=== PATIENT | female | born 1995 | race Caucasian/White ===

== ENCOUNTER 2016-07-25 18:51 | Outpatient (CLI) | payer OTHER ==
[~2016-07-25] VITALS: Ht 162.6 cm; Wt 78.2 kg
[~2016-07-25 18:51] MED LIST: ACET-1256 PO; PRENTAB26 PO
[2016-07-25 19:24] LABS: URINE APPEARANCE CLEAR (CLEAR); URINE BILIRUBIN NEG (NEG); URINE COLOR YELLOW; URINE NITRITE NEG (NEG); URINE SPECIFIC GRAVITY 1.016 (1.000-1.030); UROBILINOGEN NEG (NEG)
[2016-07-25 19:26] LABS: MANUAL MICROSCOPIC REQUIRED? NO; REVIEW REQ? NO
[2016-07-25 19:32] LABS: BASO % 0.1 %; BASO ABS # 0.01 K/uL (0-0.2); COMPLETE YES; EOS % 0.7 %; HEMATOCRIT 30.2 % (37-47); IG% 0.5 %; LYMPH % 17.4 %; LYMPH ABS # 2.53 K/uL (1.2-3.4); MEAN CORPUSCULAR HEMOGLOBIN 28.8 pg (25-34); MEAN CORPUSCULAR HGB CONC 33.1 g/dl (32-36); MONO % 6.1 %; NEUT % 75.2 %; PLATELET COUNT 366 K/uL (130-400); RED BLOOD COUNT 3.47 M/uL (4.2-5.4)
[2016-07-25 19:57] VITALS: Ht 162.6 cm; Wt 78.2 kg
--- NOTE | 2016-07-25 20:58 | HISTORY & PHYSICAL EXAMINATION ---
DATE OF ADMISSION: 07/25/2016 PRESENTING NOTE: 1. Complicated at 31 weeks gestational age. 2. Right upper quadrant pain. NOTE: The patient is a 21-year-old 1, para 0 with an EDC of September 23 at 31+ weeks gestational age who presented to labor and delivery from the Emergency Room for evaluation of right upper quadrant pain. The patient states that she has had right upper quadrant pain, crampy in nature, continuous throughout the day, associated with nausea. She denies any vomiting. The patient states that there is nobody at home that has been sick. The patient's care has been down in the [facility]. The patient did not call her [place] provider and just came to the [facility] Emergency Room for evaluation. The patient states that her course has been unremarkable and she has had no complications during the . PAST MEDICAL HISTORY: OBSTETRICAL: As above. GYNECOLOGICAL: None. PHYSICAL EXAMINATION: GENERAL: Shows a gravid female, in no acute distress. VITAL SIGNS: Blood pressure 118/70, a temperature of 97.8 and a pulse of 83. ABDOMEN: Gravid, positive heart tones. No palpable contractions, tenderness in the right upper quadrant but no rebound, no guarding, no organomegaly. Positive bowel sounds. PELVIC: Shows the cervix to be long, thick and closed. EXTREMITIES: Shows no deep calf tenderness. NEUROLOGIC: Grossly intact. LABORATORY VALUES: Show white count of 14.5 with a left shift. Urinalysis is negative. IMPRESSION: A 21-year-old 1, para 0 at 31+ weeks' gestational age, right upper quadrant pain with nausea. PLAN: heart rate tracing is reactive and no evidence of uterine activity. The cervix is long, thick and closed. If the patient does have a mild elevated white count with right upper quadrant pain, possible gallbladder disease must be considered. The patient has been cleared from an obstetrical standpoint and will return to the Emergency Room for further evaluation. The Emergency Room has been advised that the patient will be returning. The patient will then follow up with her OB providers in [place].
== END 2016-07-25 20:43 | disposition home or self-care (01) ==
LOC: C.OPB 18:51 → C.LD 18:51 → C.OPB 20:43
PROVIDERS: ATTEND Obstetrics & Gynecology
DX: O26.893 Other specified pregnancy related conditions, third trimester (principal); R10.11 Right upper quadrant pain; R11.0 Nausea; Z3A.31 31 weeks gestation of pregnancy

== ENCOUNTER → 2016-08-24 | Outpatient (CLI) | payer OTHER ==
[~2016-08-24] MED LIST changes: -ACET-1256 PO
== END | disposition home or self-care (01) ==
LOC: C.CPL 13:03
PROVIDERS: ATTEND Obstetrics & Gynecology Maternal & Fetal Medicine
DX: O35.8XX1 Maternal care for other (suspected) fetal abnormality and damage, fetus 1 (principal)